=== PATIENT | female | born 1985 | race Hispanic/Latino ===

== ENCOUNTER 2018-05-18 00:42 | Inpatient (IN) | payer OTHER ==
[~2018-05-18] VITALS: Ht 154.9 cm; Wt 83.0 kg
[2018-05-18] MEDS ORDERED: PRENATAL VITAM1 EAC7 PO (02:17)
[2018-05-18] MEDS ORDERED: URSODIOL300 MG PO (02:19)
--- NOTE | 2018-05-20 10:40 | PR ---
[facility] [address] [facility] [place], [place] [address] Signed PP Progress Notes Datetime Report Generated by CPN: 05/20/2018 10:40 SUBJECTIVE: [id number] Pain: Within normal limits Nausea/Vomiting: Denies Flatus: Yes Bowel Movement: No Vital Signs: [id number] Vital Signs: Reviewed; Within Normal Limits Notable Details: BP still slighlty elevate EXAM: [id number] Cardiovascular: Normal Respiratory: Normal Abdomen/Uterus: Normal Lochia: Normal Vulva/Perineum: Not Done Breasts: Not Done CVA Tenderness: Normal Extremities: Normal Incision: Not Applicable Progress: Normal Exam Comments: No clonus, reflexes 2+/4 IMPRESSION/PLAN/PROCEDURES: [id number] Impression: Normal progression Other Impression: Preeclampsia with severe features Plan: Discharge Procedures: None Progress Notes: Doing much better, BP seems improved with increased dose of Procardia. Patient wants to go home. Signing Physician: Emma Gonzalez MD Copies: ~ *Electronically Signed* 05/20/18 1040 EMMA GONZALEZ MD PATIENT NAME: KAILEE HUITRON PROGRESS NOTE DATE OF : 85 PHYSICIAN: EMMA GONZALEZ MD RPT #: [id number] REPORT IS CONFIDENTIAL AND NOT TO BE RELEASED WITHOUT AUTHORIZATION
== END 2018-05-20 12:30 | disposition home or self-care (01) | DRG 774 ==
LOC: FBC 00:42
PROVIDERS: ADMIT Obstetrics & Gynecology
PROC: 10E0XZZ Delivery of Products of Conception, External Approach (ICD-10-PCS; principal; 2018-05-18)
PROC: 0KQM0ZZ Repair Perineum Muscle, Open Approach (ICD-10-PCS; 2018-05-18)
PROC: 10907ZC Drainage of Amniotic Fluid, Therapeutic from Products of Conception, Via Natural or Artificial Opening (ICD-10-PCS; 2018-05-18)
PROC: 3E0P7VZ Introduction of Hormone into Female Reproductive, Via Natural or Artificial Opening (ICD-10-PCS; 2018-05-18)
DX: O11.4 Pre-existing hypertension with pre-eclampsia, complicating childbirth (principal); O10.92 Unspecified pre-existing hypertension complicating childbirth; K83.1 Obstruction of bile duct; O26.62 Liver and biliary tract disorders in childbirth; O70.1 Second degree perineal laceration during delivery; O28.2 Abnormal cytological finding on antenatal screening of mother; Z86.59 Personal history of other mental and behavioral disorders; Z3A.37 37 weeks gestation of pregnancy; Z37.0 Single live birth
CPT/HCPCS: 36415; 80053; 82565; 82570; 83735; 84156; 84450; 84520; 84550; 85025; 88720; J1650; J2590; J3010; J3475; J7120

== ENCOUNTER 2021-12-11 05:16 | Emergency (ER) | payer OTHER ==
[~2021-12-11] VITALS: Ht 154.9 cm; Wt 88.0 kg
[~2021-12-11 05:16] MED LIST: PRENATAL VITAM1 EAC7 PO; URSODIOL300 MG PO
[2021-12-11] MEDS ORDERED: METOPROLOL SUCC25 MG PO (05:41)
[2021-12-11] MEDS ORDERED: ONDANSETRON ODT8 MG PO (08:49)
[2021-12-11] MEDS ORDERED: HYDROCODON-ACE1 EA11 PO (08:49)
== END 2021-12-11 09:41 | disposition home or self-care (01) ==
LOC: ED 05:16
DX: O20.9 Hemorrhage in early pregnancy, unspecified (principal); O16.1 Unspecified maternal hypertension, first trimester; Z79.899 Other long term (current) drug therapy; Z3A.09 9 weeks gestation of pregnancy
CPT/HCPCS: 36415; 76801; 76817; 80048; 81001; 84702; 85025; 86900; 86901; 99284-25; A9270

== ENCOUNTER 2023-12-28 09:58 | Day surgery (SDC) | payer OTHER ==
[2023-12-22 13:41] VITALS: BP 139/100
[~2023-12-28] VITALS: Ht 154.9 cm; Wt 79.5 kg
[~2023-12-28 09:58] MED LIST changes: +HYDROCODON-ACE1 EA11 PO; +IBLOOD GLUCOSE TEST STRIP 1 EA TEST VI PRN; +LACTATED RINGER'S 1,000 ML IV SCH; +LIDOCAINE HCL 1% 5 ML SDV INJ ONE; +METOPROLOL SUCC25 MG PO; +ONDANSETRON ODT8 MG PO
[2023-12-28 10:21] VITALS: BP 137/94
[2023-12-28] MEDS ORDERED: ACETAMINOPHEN 1,000 MG/100 ML VIAL ONE (10:31)
[2023-12-28] MEDS ORDERED: KETOROLAC TROMETHAMINE 30 MG/ML VIAL ONE (10:31)
[2023-12-28] MEDS ORDERED: LIDOCAINE HCL 2% 5 ML SDV ONE (10:31)
[2023-12-28] MEDS ORDERED: propofoL 200 MG/20 ML VIAL ONE (10:31)
[2023-12-28] MEDS ORDERED: ondansetron HCL 4 MG/2 ML VIAL ONE (10:31)
[2023-12-28] MEDS ORDERED: ROCURONIUM BROMIDE 50 MG/5 ML SYR ONE (10:31)
[2023-12-28] MEDS ORDERED: KETAMINE in NS 50 MG/5 ML SYR ONE (10:31)
[2023-12-28] MEDS ORDERED: fentaNYL citrate 100 MCG/2 ML VIAL ONE (10:31)
[2023-12-28] MEDS ORDERED: DEXAMETHASONE SOD PHOS 4 MG/ML VIAL ONE (10:31)
[2023-12-28] MEDS ORDERED: SUGAMMADEX SODIUM 200 MG/2 ML ML ONE ×2 (10:41→12:29)
--- NOTE | 2023-12-28 11:13 | NUR ---
1110 PT USED CALL LIGHT TO ALERT RN THAT PT NEEDED TO VOID. PT AMBULATED TO BATHROOM AND VOIDED. PT BACK IN BED WITH CALL LIGHT WITHIN REACH, PERSONAL ITEMS WITHIN REACH AND BED IS LOW AND LOCKED.
[2023-12-28] MEDS ORDERED: SCOPOLAMINE 1 MG/3 DAYS PATCH 1 EACH TDSY ONE (11:30)
[2023-12-28] MEDS ORDERED: METOCLOPRAMIDE HCL 10 MG/2 ML SDV ONE (11:41)
[2023-12-28] MEDS ORDERED: fentaNYL citrate 50 MCG/ML SDV IV PRN (12:15)
[2023-12-28] MEDS ORDERED: ondansetron HCL 4 MG/2 ML VIAL IV PRN ×2 (12:15→12:45)
[2023-12-28] MEDS ORDERED: droPERidol 5 MG/2 ML VIAL IV PRN (12:15)
[2023-12-28] MEDS ORDERED: NALOXONE HCL 0.4 MG SYR IV PRN ×2 (12:15→12:45)
[2023-12-28] MEDS ORDERED: IBLOOD GLUCOSE TEST STRIP 1 EA TEST VI PRN (12:15)
[2023-12-28] MEDS ORDERED: GLYCOPYRROLATE 1 MG/5 ML MDV ONE (12:42)
[2023-12-28] MEDS ORDERED: FAMOTIDINE 20 MG/ 2 ML VIAL IV PRN (12:45)
[2023-12-28] MEDS ORDERED: METOCLOPRAMIDE HCL 10 MG/2 ML SDV IV PRN (12:45)
[2023-12-28] MEDS ORDERED: FAMOTIDINE 20 MG TAB PO PRN (12:45)
[2023-12-28] MEDS ORDERED: OXYCODONE/APAP 5/325 TAB PO PRN (12:45)
--- NOTE | 2023-12-28 13:03 | NUR ---
12/28/23 1303 Yuli Johnson 1243 PT ARRIVES TO THE PACU BREATHING IS UNLABORED AND EVEN. VSS. PT IS RESTING IN BED WITH EYES CLOSED, AND EASILY FALLS BACK ASLEEP. PT SITTING IN HIGH FOWLERS. 1249 PT SAYS THAT THERE IS NO PAIN OR NAUSEA. PT IS REORIENTED TO PACU. O2 IS REMOVED. PT EASILY FALLS BACK TO SLEEP. 1255 PT FALLS BACK TO SLEEP WITH PERIODS OF APNEA NOTED. PT EASILTY WAKES TO VERBAL STIMULI. O2 SAT DECREASES TO LOW 80S. DEEP BREATHING ENCOURAGED. O2 SATURATION TO MID 90S. 1301 02 SAT DECREASED TO 80S. 2L NC PLACED. O2 SAT IN HIGH 90S. EDUCATION GIVEN ON O2 SAT AND BREATHING AND MEDICINE.
[2023-12-28 13:35] VITALS: BP 125/82
--- NOTE | 2023-12-28 13:35 | NUR ---
1335-PT BACK TO ROOM FROM PACU ON 2L VIA OK. RECEIVED REPORT FROM LYLE PUGA NURSE WITH CIELO RN IN ROOM. PATIENT IS AWAKE. RESP EVEN AND UNLABORED. DENIES PAIN AND NAUSEA. PROVIDED PATIENT WITH ICE WATER. NO OTHER NEEDS AT THIS TIME. CALL LIGHT WITHIN REACH.
--- NOTE | 2023-12-28 14:06 | NUR ---
1406 WENT IN AND SPOKE WITH PT. PT HAS NO PAIN OR NAUSEA. PT REQUESTING PUDDING AND HAS WATER AT BEDSIDE. PT HAS PHONE AND CALL LIGHT WITHIN REACH, PT BED LOW AND LOCKED. PT OXYGEN 100% AT 2L VIA NASAL CANULLA. THIS NURSE CHANGED O2 TO 1L VIA NASAL CANULLA WITH CONTINUOUS PLUSE OX IN PLACE.
[2023-12-28 14:39] VITALS: BP 132/85
--- NOTE | 2023-12-28 14:40 | NUR ---
1435 PT OFF OXYGEN ON ROOM AIR AND OXYGEN SATURATION AT 98-100%. VITALS TAKEN, IV ASSESSED. PT AWAKE AND ORIENTED. PT REPORTS NO PAIN, NO NAUSEA. PT DOES NOT NEED TO URINATE YET. PT DRINKING PO FLUIDS AND PO SNACKS. IV FLUIDS INCREASED TO ASSIST IN PT BEING ABLE TO VOID. PT HAS CALL LIGHT WITHIN REACH, PERSONAL ITEMS WITHIN REACH AND BED IS LOW AND LOCKED.
--- NOTE | 2023-12-28 15:08 | NUR ---
1505 PT ABLE TO AMBULATE TO BATHROOM AND VOID 600 MLS. PT DISCHARGE INFORMATION GONE OVER WITH PT. NO FURTHER QUESTIONS AT THIS TIME. PT GETTING DRESSED ON OWN. PT HAS CALL LIGHT.
[2023-12-28 15:19] VITALS: BP 122/92
--- NOTE | 2023-12-28 15:37 | NUR ---
1520 IV REMOVED FOR DISCHARGE. 1522 PT DISCHARGED FROM DAY SURGERY VIA WHEELCHAIR TO 'S CAR AT THE FRONT OF THE HOSPITAL.
--- NOTE | 2023-12-29 17:29 | EKG ---
[facility] [address] [facility] [place], [place] [address] Signed Normal sinus rhythm Normal ECG Confirmed by CLINT STEVENS MD ([id number]) on 12/29/2023 5:29:56 PM Electronically Signed By: CLINT STEVENS 12/29/23 1729 PATIENT NAME: VENEGASMAGDIEL BEYKAILEE PENDLETON Electrocardiogram DATE OF : 85 PHYSICIAN: CLINT STEVENS REPORT #: [id number] REPORT IS CONFIDENTIAL AND NOT TO BE RELEASED WITHOUT AUTHORIZATION
--- NOTE | 2024-01-14 06:42 | OR ---
[facility] [address] [place] [address] [place], [place] [address] Signed DATE OF OPERATION: 12/28/2023 SURGEON: Karri Cancino DO PREOPERATIVE DIAGNOSIS: At risk for ovarian cancer. POSTOPERATIVE DIAGNOSES: 1. At risk for ovarian cancer. 2. Pelvic adhesions. ANESTHESIA: General. PROCEDURES PERFORMED: 1. Bilateral salpingectomy. 2. Minimal lysis of adhesions. ESTIMATED BLOOD LOSS: 25 mL. SPECIMENS: Bilateral fallopian tubes. COMPLICATIONS: None. FINDINGS: Normal external genitalia with normal clitoris, urethral meatus, bilateral Nicholson's, and Bartholin's glands. Normal vagina and cervix. On laparoscopy, normal appearing uterus, tubes, and ovaries. She did have some omental adhesions to the anterior abdominal wall that were easily taken down. COMPLICATIONS: None. INDICATIONS: Ms. Bull is a very pleasant 38-year-old G3, P3 female, who desires bilateral salpingectomy for ovarian cancer risk reduction and sterilization. She was not currently on anything for contraception or cycle control. Electronically Signed By: KARRI CANCINO DO (JD) 01/14/24 0642 PATIENT NAME: KAILEE HUITRON OPERATIVE REPORT DATE OF : 85 REPORT #: [id number] PHYSICIAN: KARRI CANCINO DO (JD) PCP: FRANCISCO JAVIER RAMIREZ REPORT IS CONFIDENTIAL AND NOT TO BE RELEASED WITHOUT AUTHORIZATION [facility] [address] [place], [place] [address] Signed She has no family history of ovarian cancer, but her mother did have breast cancer in her 50s. Risks, benefits, and alternatives were discussed in detail with the patient. The patient understands and wishes to proceed with the procedure. DESCRIPTION OF PROCEDURE: The patient was taken to the OR where a time-out was performed to confirm correct patient and correct procedure. General anesthesia was adequately established. The patient was prepped and draped in dorsal lithotomy position with her feet in Yellofin stirrups. ICPs were on and running. No preoperative antibiotics or heparin was indicated. A weighted speculum was placed in the vagina and a Short catheter was inserted. An Allis clamp was placed on the anterior lip of the cervix and the cervix was gently dilated using Hegar dilators and a [employer] uterine manipulator was placed. Surgeon's gloves were changed and attention was turned to the abdomen. The base of the umbilicus was infiltrated with 0.25% Marcaine with epinephrine and a 5 mm stab incision was made. A 5 mm port was used to perform direct entry and pneumoperitoneum was established without difficulty. Survey of the abdomen and pelvis was performed. A 5 mm assist port was placed in the left lower quadrant and right lower quadrant under direct visualization without complication. Normal upper quadrants. Uterus, tubes, and ovaries were appreciated. No evidence of endometriosis or other intrapelvic pathology. Slight omental adhesion was noted and this was taken down with LigaSure device without issue. Attention was turned to salpingectomy. The left fallopian tube was grasped at the fimbriated end, elevated and dissected along the mesosalpinx using the LigaSure device. Complete dissection of the fallopian tube along the mesosalpinx was performed with excellent hemostasis and the fallopian tube was amputated, flushed with cornu. The process was repeated on the right side without difficulty. Excellent hemostasis was appreciated. Pneumoperitoneum was reduced. Trocars sites were repaired with 4-0 Vicryl. The Short catheter and Hulka uterine manipulator were removed and the patient was taken to PACU in good and stable condition. Sponge, needle, and instrument counts were correct x2 at the end the procedure. DO GREGG Pacheco/MARLA /[id number] Electronically Signed By: KARRI CANCINO DO (JD) 01/14/24 0642 PATIENT NAME: KAILEE HUITRON OPERATIVE REPORT DATE OF : 85 REPORT #: [id number] PHYSICIAN: KARRI CANCINO DO (JD) PCP: FRANCISCO JAVIER RAMIREZ REPORT IS CONFIDENTIAL AND NOT TO BE RELEASED WITHOUT AUTHORIZATION [facility] [address] [place] [address] [place] [address] Signed Copies: ~ Electronically Signed By: KARRI CANCINO DO (JD) 01/14/24 0642 PATIENT NAME: KAILEE HUITRON OPERATIVE REPORT DATE OF : 85 REPORT #: [id number] PHYSICIAN: KARRI CANCINO (SOSA) PCP: FRANCISCO JAVIER RAMIREZ REPORT IS CONFIDENTIAL AND NOT TO BE RELEASED WITHOUT AUTHORIZATION
== END 2023-12-28 15:22 | disposition home or self-care (01) ==
LOC: OPS 09:58 → DS 09:58 → OPS 12:15
PROVIDERS: ATTEND Obstetrics & Gynecology
PROC: 0UT74ZZ Resection of Bilateral Fallopian Tubes, Percutaneous Endoscopic Approach (ICD-10-PCS; principal; 2023-12-28 12:15)
DX: Z40.03 Encounter for prophylactic removal of fallopian tube(s) (principal); K66.0 Peritoneal adhesions (postprocedural) (postinfection); I10 Essential (primary) hypertension; Z79.899 Other long term (current) drug therapy
CPT/HCPCS: 00840; 88302; 93005; 93010; J0131; J1100; J1885; J2001; J2405; J2704; J2765; J3010; J3490; J7121